=== PATIENT | female | born 1975 | race Caucasian/White ===

== ENCOUNTER 2020-12-13 13:25 | Emergency (ER) | payer OTHER ==
[~2020-12-13] VITALS: Ht 160 cm; Wt 92.1 kg
[~2020-12-13 13:25] MED LIST: BACL-19 PO; CITA40TA12 PO; GABA800T5 PO; TRAM50TA2 PO
[2020-12-13 13:28] VITALS: BP 174/92
--- NOTE | 2020-12-13 13:44 | NUR ---
PT AMBULATED TO ROOM FROM TRIAGE. PT HAS HISTROY OF CHIARI MALFORMATION AND HAD A POSTERIOR CRANIECTOMY IN JANUARY 2020 WITH A MUSCLE FLAP PLACED OF CRANI SITE. TODAY, PT WAS CARRYING SOME BOXES AND SLIPPED ON THE GRASS AND HIT THE BACK OF HER HEAD. PT CO HEADACHE, N/V AND DOUBLE VISION. EQUAL STRENGTH THROUGHOUT, PERRL. PT DENIES LOC OR TAKING BLOOD THINNERS.
[2020-12-13] MEDS ORDERED: ONDANSETRON ODT 4 MG ONE (13:48)
[2020-12-13] MEDS ORDERED: ONDANSETRON ODT 4 MG PO ONE (14:00)
--- NOTE | 2020-12-13 14:03 | NUR ---
PT TO CT
--- NOTE | 2020-12-13 14:43 | NUR ---
DISCHARGE INSTRUCTIONS REVIEWED WITH PT. ALL QUESTIONS ANSWERED AT THIS TIME.
== END 2020-12-13 14:45 | disposition home or self-care (01) ==
LOC: ED 14:37
DX: S09.90XA Unspecified injury of head, initial encounter (principal); R11.10 Vomiting, unspecified; M54.2 Cervicalgia; Z90.89 Acquired absence of other organs; W18.00XA Striking against unspecified object with subsequent fall, initial encounter; Y93.89 Activity, other specified; Y92.009 Unspecified place in unspecified non-institutional (private) residence as the place of occurrence of the external cause; Y99.8 Other external cause status
CPT/HCPCS: 70450; 72125; 99285; Q0162